=== PATIENT | male | born 1995 | race Two or more races ===

== ENCOUNTER 2024-05-09 20:46 | Emergency (ER) | payer OTHER ==
[~2024-05-09] VITALS: Ht 177.8 cm; Wt 96.3 kg
--- NOTE | 2024-05-09 22:20 | DVH ---
CLINICAL INDICATION: 5th finger injury TECHNIQUE: XY L HAND 3V XRAY Comparison: None FINDINGS/IMPRESSION: : Comminuted predominantly transversely oriented fracture of the distal 5th distal phalanx. Overlying soft tissue swelling and laceration Normal mineralization alignment. Joint spaces are preserved.
--- NOTE | 2024-05-09 23:00 | ED.PDOC ---
Mult. 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 FINGER WAS SMASHED AGAINST CORNER OF GEARBOX @WORK. LACERATION NOTED ACROSS DISTAL PHALANX, AFTER NAILBED. DISCOLORATION AND SWELLING NOTED. PT STATED NUMBNESS/TINGLING TO LEFT HAND. LACERATION CLEANED, DRESSED AND BLEEDING CONTROLLED. DENIES WEAKNESS Chief Complaint: Upper Extremity Time Seen by MD: 20:57 Reviewed notes: Nurses Notes, Medications, Allergies Allergies: Coded Allergies: No Known Drug Allergy (Verified Allergy, Unknown, 05/09/24) Information Source: Patient Mode of Arrival: Ambulatory Constitutional: denies: chills, diaphoresis, fatigue, fever, malaise, sweats, weakness, others EENTM: denies: blurred vision, double vision, ear bleeding, ear discharge, ear drainage, ear pain, ear ringing, eye pain, eye redness, hearing loss, mouth pain, mouth swelling, nasal discharge, nose bleeding, nose congestion, nose pain, photophobia, tearing, throat pain, throat swelling, voice changes, others Respiratory: denies: cough, hemoptysis, orthopnea, SOB at rest, shortness of breath, SOB with excertion, stridor, wheezing, others Cardiovascular: denies: chest pain, dizzy spells, diaphoresis, Dyspnea on exertion, edema, irregular heart beat, left arm pain, lightheadedness, palpitations, PND, syncope, others Gastrointestinal: denies: abdomen distended, abdominal pain, blood streaked bowels, constipated, diarrhea, dysphagia, difficulty swallowing, hematemesis, melena, nausea, poor appetite, poor fluid intake, rectal bleeding, rectal pain, vomiting, others Genitourinary: denies: burning, dysuria, flank pain, frequency, hematuria, incontinence, penile discharge, penile sore, pain, testicle pain, testicle swelling, urgency, others Neurological: denies: dizziness, fainting, headache, left sided numbness, left sided weakness, numbness, paresthesia, pre-existing deficit, right sided numbness, right sided weakness, seizure, speech problems, tingling, tremors, weakness, others Musculoskeletal: denies: back pain, gout, joint pain, joint swelling, muscle pain, muscle stiffness, neck pain, others Integumetry: reports: laceration (LEFT 5TH DIGIT); denies: bruises, change in color, change in hair/nails, dryness, lesions, lumps, rash, wounds, others Allergic/Immunocompromised: denies: Difficulty Healing, Frequent Infections, Hives, Itching, others Hematologic/Lymphatic: denies: anemia, blood clots, easy bleeding, easy bruising, swollen glands, others Endocrine: denies: excessive hunger, excessive sweating, excessive thirst, excessive urination, flushing, intolerance to cold, intolerance to heat, unexplained weight gain, unexplained weight loss, others Psychiatric: denies: anxiety, bipolar disorder, depression, hopeless, panic disorder, schizophrenia, sleepless, suicidal, others Physical Exam General Appearance: No Apparent Distress, Normal HEENT: Pharynx Normal Neck: Full Range of Motion, Non-Tender Respiratory: Lungs Clear, No Respiratory Distress, Normal Breath Sounds Cardiovascular: No Murmur, Normal Peripheral Pulses, Regular Rate/Rhythm Breast Exam: Deferred Gastrointestinal: Non Tender, Soft Genitalia: Deferred Pelvic: Deferred Rectal: Deferred Extremities: Normal capillary refill, Normal inspection, Normal range of motion, Non-tender, No pedal edema Musculoskeletal : Apperance: Normal Neurologic: Alert, director of security II-XII nml as Tested, No Motor Deficits, Normal Affect, Normal Mood, No Sensory Deficits Cerebellar Function: Normal Reflexes: Normal Skin: Dry, Lacerations (FULL-THICKNESS LACERATION ACROSS THE TIP OF THE 5TH DIGIT WITH DAMAGE TO THE CUTICLE. ), Normal Color, Warm Lymphatic: No Adenopathy Was a procedure done? Was a procedure done?: Yes Sedation Sedation?: No Informed consent obtained: Yes Laceration Repair : Location FIFTH DIGIT DISTAL PHALANX Length 1.5 CM Anesthetic: Lidocaine, Without epi Laceration Repair Prep: Saline, Betadine Laceration Repair Wound Comple: epidermis/dermis repair Laceration Repair: Number of sutures (3) Informed consent obtained: Yes Risks, benefits, and alternati: Yes Notes PATIENT TOLERATED WELL MINIMAL BLOOD LOSS. X-Ray, Labs, Meds, VS Vital Signs Date Time Temp Pulse Resp B/P (MAP) Pulse Ox O2 Delivery O2 Flow Rate FiO2 05/09/24 23:18 98.3 70 19 150/95 (113) 96 98.3 05/09/24 23:18 70 19 96 Room Air 05/09/24 21:19 98.3 85 18 147/85 (105) 96 X-Ray, Labs, Meds, VS Comment SEE PROCEDURE NOTE. PROPHYLACTIC ANTIBIOTICS AUGMENTIN TWICE DAILY X7 DAYS. IBUPROFEN T.I.D. NEEDED FOR PAIN. ADVISED TO FOLLOW UP WITH HIS [employer]OY[employer] IN OBTAIN REFERRAL FOR A HAND SURGEON CONSULT AND EVALUATION. LACERATION DRESSED AND PLACED IN SPLINT. ADVISED KEEP SPLINT ON UNTIL FOLLOW UP WITH ORTHO SURGEON. ADVISED ON RICE ER RETURN PRECAUTIONS GIVEN FOR SIGNS OF INFECTION OR ON CONTROLLED BLEEDING. WEAKNESS OF THE EXTREMITY. PATIENT AGREES WITH DISCHARGE PLAN OF CARE. HE IS UNDERSTANDING. Time of 1ST Reevaluation: 00:11 Reevaluation 1ST: Improved Patient Education/Counseling: Diagnosis, Treatment, Prognosis, Need For Follow Up Family Education/Counseling: No Family Present Departure 1 Departure Time of Disposition: 00:11 Impression: Primary Impression: Finger fracture, left Qualified Codes: S62.637A - Displaced fracture of distal phalanx of left little finger, initial encounter for closed fracture Disposition: HOME / SELF CARE / HOMELESS Condition: Stable e-Prescriptions Ibuprofen (Ibuprofen) 800 Mg Tab 1 TAB PO TID PRN for 5 Days, #15 TAB Prov: CURT ROB 05/10/24 Amoxicillin & Pot Clavulanate (AUGMENTIN TABLET) 875 Mg Tb 1 TAB PO BID for 7 Days, #14 TAB Prov: CURT ROB 05/10/24 Discharged With: Self Critical Care Note Critical Care Time?: No Stability Stability form required: No CURT ROB May 09, 2024 23:00
[2024-05-09 23:18] VITALS: BP 150/95; PULSE 70; RESP 19; TEMP 98.3; O2SAT 96
[2024-05-10] MEDS ORDERED: AUG875T PO (00:14)
[2024-05-10] MEDS ORDERED: IBUP-1456 PO (00:14)
== END 2024-05-10 00:29 | disposition home or self-care (01) ==
LOC: ER 20:46
DX: S62.637A Displaced fracture of distal phalanx of left little finger, initial encounter for closed fracture (principal); X58.XXXA Exposure to other specified factors, initial encounter; Y93.89 Activity, other specified; Y92.89 Other specified places as the place of occurrence of the external cause; Y99.0 Civilian activity done for income or pay
CPT/HCPCS: 12001; 29130; 73130